=== PATIENT | male | born 1940 | race Caucasian/White ===

== ENCOUNTER 2016-09-05 14:47 | Inpatient (IN) | payer OTHER, MEDICARE ==
[~2016-09-05] VITALS: Ht 172.7 cm; Wt 69.3 kg
[~2016-09-05 14:47] MED LIST: ASCO100016 PO; CHEL50TA PO; CO Q100C9 PO; COCO1000 PO; GABA300C5 PO; GINK120T2 PO; LOVA40TA PO; LUTE40CA2 PO; MELO-1 PO; MULTTAB67 PO; PYRI100T PO; ROPI0.5T PO; SAW450CA2 PO; TIMO0.5S30 EACH EYE; TURM500C3 PO; VITA2000 PO; VITA250T5 PO
[2016-09-06] MEDS ORDERED: CHLORHEXIDINE GLUCONATE 2 % 1 PACK (2 CLOTHS) TOPICAL PRN (10:45)
[2016-09-06] MEDS ORDERED: LACTATED RINGER'S 1000 ML IV PRN (10:45)
[2016-09-06] MEDS ORDERED: INSULIN HUMAN REGULAR 1,000 UNITS/10 ML VIAL SQ PRN (10:45)
[2016-09-06] MEDS ORDERED: SODIUM CHLORID 0.9% 500 ML IV PRN (10:45)
[2016-09-06] MEDS ORDERED: POVIDONE IODINE 5% (ANTISEPSIS KIT) 4 APPLICATIONS EACH NARE PRN (10:45)
[2016-09-06] MEDS ORDERED: METOPROLOL TARTRATE 25 MG TAB PO PRN (10:45)
[2016-09-06] MEDS ORDERED: VANCOMYCIN HCL 1000 MG ON-CALL/NS 250 ML IV SCH ×2 (10:45)
[2016-09-06] MEDS ORDERED: SODIUM CHLOR 0.9% 1000 ML INJ 1,000 ML IV SCH (11:00)
[2016-09-06] MEDS ORDERED: LACTATED RINGER'S 1000 ML INJ 2,000 ML IV ONE (12:00)
[2016-09-06] MEDS ORDERED: PROPOFOL 200 MG/20 ML AMP IV ONE (12:00)
[2016-09-06] MEDS ORDERED: SODIUM CHLORID 0.9% 500 ML INJ 500 ML IV ONE (12:00)
[2016-09-06] MEDS ORDERED: ePHEDrine/NS 25 MG/5 ML SYR IV ONE (12:00)
[2016-09-06] MEDS ORDERED: ACETAMINOPHEN 1000 MG/100 ML VIAL IV ONE (12:00)
[2016-09-06] MEDS ORDERED: BUPIVACAINE HCL PF 0.5% 30 ML VIAL ONE (12:30)
[2016-09-06] MEDS ORDERED: GELFOAM SIZE 100 ONE (12:31)
[2016-09-06] MEDS ORDERED: GENTAMICIN SULFATE 80 MG/2 ML VIAL ONE (12:31)
[2016-09-06] MEDS ORDERED: ceFAZolin 2 GM PREMIX 50 ML ONE (12:31)
[2016-09-06] MEDS ORDERED: THROMBIN (TOPICAL) 5,000 UNIT VIAL ONE (12:31)
[2016-09-06] MEDS ORDERED: fentaNYL CITRATE 250 MCG/5 ML AMP ONE (13:19)
[2016-09-06] MEDS ORDERED: ARTIFICIAL TEARS OPTH OINT 3.5 APPLIC/3.5 GM TUBO ONE (13:19)
[2016-09-06] MEDS ORDERED: MIDAZOLAM HCL 2 MG/2 ML VIAL ONE (13:19)
--- NOTE | 2016-09-06 16:46 | EKG ---
Date Performed: 09/06/2016 Time Performed: 09:57:55 PTAGE: 76 years EKG: Sinus rhythm MARKED LEFT AXIS DEVIATION ABNORMAL ECG NO PREVIOUS TRACING DOCTOR: Dariel York Interpretating Date/Time 09/06/2016 16:44:31
[2016-09-06] MEDS ORDERED: NALOXONE HCL 0.4 MG/ML AMP IV PRN (17:30)
[2016-09-06] MEDS ORDERED: MORPHINE SULFATE 4 MG/ML INJ IV PUSH PRN (17:30)
[2016-09-06] MEDS ORDERED: HYDROmorphone HCL PCA 6 MG/30 ML IV SCH (17:30)
[2016-09-06] MEDS ORDERED: ACETAMINOPHEN 325 MG TAB PO PRN (17:30)
[2016-09-06] MEDS ORDERED: SODIUM CHLORIDE 0.9% FLUSH 5 ML FLUSH IVF PRN (17:30)
[2016-09-06] MEDS ORDERED: diphenhydrAMINE HCL 50 MG/ML VIAL IV PRN (17:30)
--- NOTE | 2016-09-06 17:39 | PD.OP ---
Operative Report Date of Surgery: Sep 06, 2016 Preoperative Diagnosis: L4-5 spondylolisthesis Postoperative Diagnosis: L4-5 spondylolisthesis Procedure: L4-L5 laminectomy, interbody arthrodhesis using PEEK cage and autologous bone graft, L4-L5 instrumental fixation using transpedicular screws and rods, L4-L5 posterolateral fusion using autologous bone graft and demineralized bone matrix. Microsurgical dissection Anesthesia: general Surgeon: Salvador Tubbs Multi Disciplined Language Analyst(s): Jael Sims Operation and Findings: INDICATIONS FOR THE SURGICAL PROCEDURE Mr Murrell is a 76 year-old male who presented with intractable mechanical back pain and fazal evidence of lower extremity radiculopathy. He has severe spondylosis and spondylolisthesis at L4-5. He failed maximum nonsurgical management including multiple modalities of conservative treatment as well as pain management interventions by an interventional pain specialist. A surgical decompression and arthrodhesis were indicated as a last resort. The [id number] details of the procedure, indications, alternatives, risks and potential complications were fully discussed with the patient. The patient fully understood. All the questions were answered. No guarantees were given. The patient voiced requesting the procedure and provided informed consents. The patient was offered the alternative of delaying the procedure and continuing with nonsurgical management. DETAILS OF THE SURGICAL PROCEDURE Prior to the procedure, the surgical incision was marked in the preoperative surgical holding room, and the procedure, risks, and potential complications revisited with the patient. Placement of electrodes for intraoperative neurophysiological monitoring was completed. The patient was taken to the operative room, and following induction of general anesthesia, endotracheal intubation was performed. A Hernandez catheter, bilateral ANTHONY hose and sequential compression devices were placed and kept throughout the procedure. The patient was positioned prone, over a Willie table over a bolsters. All pressure in the preoperative surgical holding room points were carefully padded with eggcrate and gel mattress. The eyes were tapped shut after ointment was applied by the anesthesiologist to prevent corneal abrasion. A Mariusz hugger was placed over the expossed lower body to maintain control of the core body temperature. The electrophysiological team placed the needles and electrodes in their proper location and baseline SSEP's and EMG potentials were registered. The entrance to each pedicles was marked using a C arm. The lumbar region was prepped and draped in the usual sterile fashion. The surgical procedure was performed in several steps as follow: SURGICAL APPROACH Once the patient was positioned, a localizing cross-table lateral x-ray was performed with a C-arm. Two paramedian small incisions were outlined on the skin approximately 3cm from the midline. The skin incisions were made with a # 10 blade. Small bleeders were controlled with the cautery. The dissection was then carried out into deper planes and through the thoracolumbar fascia with a Bovie. The intermuscular septum was identified and the myscles were blunted dissected along the septum. The facets and transverse process of L4 and L5 were exposed and the proper anatomical landmarks were identidied. A microsurgical self-retaining retractor was placed on the incision, and a localizing lateralizing cross-table x-ray was performed with an instrument underneath a lamina of the lumbar spine. INSTRUMENTAL FIXATION At this point in the procedure, placement of bilateral transpedicular screws was necessary for stabilization of the spine. Initially, the entry point for the screw was selected anatomically at the junction of the facet, with the transverse process, and the pars interarticularis at L4 and L5. This was started with a Giamshetti needle followed by the use of a lloyd wire. A tap was used to create the threads for the screws. Finally bilateral transpedicular screws were carefully placed bilaterally at L4, and L5 under fluoroscopic visualization. An appropriate purchase was achieved with all screws. The position of each screw was assessed anatomically with an AP, lateral , oblique Xrays. An intraoperative scan view of the spine was then performed using the iso-centric c-arm. Each screw was then assessed electrophysiologically stimulating each screw with a nerve stimulator. SURGICAL DECOMPRESSION There was significant mass effect with compression of the neural structures. In order to relieve neural compression, it was necessary to perform a decompressive laminectomy, with decompression of the spinal canal and bilateral lateral recesses. Note that the scope of such decompression was significantly more extensive than the minimal exposure necessary to perform an interbody fusion, as there was extreme facet arthropathy with near complete collapse of the disk spaces and severe stenosis cause by the hyperthrophic joint facets. At this point of the procedure the operative microscope was draped in the usual sterile fashion and brought to the field. The rest of the surgical procedure was performed using microdissection technique with the exception of the closure. Under the operating microscope, a decompressive laminectomy was carried out at L4-L5 as follow: The laminae, base of the spinous processes and facets were carefully drilled exposing the ligamentum flavum. The facets were abnormal with severe spondylolisthesis and gross mechanical instability. A large disk protusion was compressing the neural structures and exiting nerve roots. A near complete facetectomy was necessary resulting in further mechanical instability. The ligamentum flavum appeared hypertrophic, resulting on mass effect on the dorsal surface of the neural structures. The superior free border of the ligamentum flavum was elevated with a ligament dissector and the ligamentum flavum was removed with a 3 and 4 mm Kerrison forceps. The ligament was very adherent to the dural sac and during the dissection, and extreme care was taken during the dissection. The exiting nerve roots were identified, and a wide foraminotomy was performed with a Kerrison in their trajectory towards the neural foramen. Epidural veins located laterally to the dural sac were coagulated with the bipolar cautery, and then incised using microscissors. Gentle medial retraction of the dural sac allowed me to expose the disc space for the discectomy. Upon completion of the discectomy, an excellent decompression of the neural structures was achieved. Increased motion was noted, consistent with mechanical instability. INTERBODY ARTHRODHESIS In order to correct the narrowing of the disk space and maintain distraction of the space, and to achieve a solid interbody fusion, it was necessary the insertion of an interbody device into the disk space. Otherwise, the disk space would collapse, compromising the result of the surgical procedure. At this point of the procedure, the annulus fibrosus of the disk was carefully coagulated with a bipolar cautery and incised using an 11 bladed knife. Then, a microdiscectomy was carried out in a standard fashion using a combination of straight and up-biting pituitary forceps. A reverse angle curette was applied underneath the posterior longitudinal ligament, and used to push the disk fragments into the disk space, so they can be safely removed with a pituitary forceps. Once the discectomy was completed, it was necessary to decorticate the endplates, in order to eliminate the cartilaginous endplate and to expose healthy bone appropriate to perform the interbody fusion. The endplates at L4- L5 were then thoroughly decorticated using increasing size bone talib and ring curets, eliminating the cartilaginous fragments from both, the superior and inferior endplates. A disk space distractor was applied to the pedicle screws and gentle distraction was applied. This maneuver was assisted by the use of a disk distractor. Increased motility was noted at the disk, which was consistent with instability due to facet arthropathy. Once a thorough preparation of the disk space was achieved, the disk space was irrigated with antibiotic solution, and the interbody fusion was performed by carefully impacting an expandable PEEK cage filled with autologous iliac crest bone graft. The cage was cartefully expanded. A solid position of the cage with good purchase was achieved. The position of the cage was assessed anatomically with a probe and radiologically with the C-arm. POSTEROLATERAL FUSION The posterolateral fusion is a critical component to the procedure, to prevent future fatigue and failure of the instrumental fixation. Initially, the transverse processes of the vertebral bodies, lateral surface of the facets and the lateral gutters of the spine were carefully cleaned, eliminating all soft tissue and muscle attachments. The area was then irrigated with a large amount of antibiotic solution. Subsequently, the transverse processes, lateral surface of the facets, and lateral gutters of the spine were thoroughly decorticated using the TPS drill with a 5mm cutting norma, exposing cancellous bone, in preparation for the posterolateral fusion. The incision was again irrigated with antibiotic solution. Then, the posterolateral fusion was then performed by carefully packing the lateral gutters of the spine at L4-L5 with autologous bone combined with demineralized bone matrix. I packed as much bone as possible. COMPLETION OF THE INSTRUMENTATION AND CLOSURE The rods were brought to the field, applied to all the screws, and the screw caps were sequentially applied. Compression was performed between the pedicle screws, and final tightening of the screws was completed using a torque wrench. A cross-link was used to connect the rods, in order to increase the stability of the construct. The cross link was secured using a torque wrench previously calibrated. The incision was again thoroughly irrigated with several liters of antibiotic solution, and hemostasis secured with the bipolar cautery. A Valsalva Maneuver performed by the anesthesiologist failed to show any evidence of cerebrospinal fluid leak or bleeding. A 7 mm Willie-Johnson drain was left in the epidural space and externalized through a separate stab incision. The incision was then closed in planes. 0 Vicryl was used in an interrupted fashion to close the thoracolumbar fascia and the superficial fascia. The subcutaneous tissue was then approximated using 3-0 Vicryl in an interrupted fashion. Special care was taken to avoid space. The skin was then closed with 4-0 Vicryl in a running, subcuticular fashion. Dermabond was applied to the skin. Each plane of closure was irrigated with antibiotic solution. At the end of the procedure the sponge, needle and instrument counts were all correct. Estimated blood loss was 250 cc. No blood transfusion was given. The entire procedure was performed using continuous electrophysiological monitoring of the somatosensorial evoked potentials and EMG. The patient received prophylactic antibiotics. The patient was then extubated and transferred to the recovery room in stable condition. Salvador Tubbs MD Sep 06, 2016 17:39
[2016-09-06] MEDS ORDERED: *morphine SULFATE 8 MG/ML PERIprocedure ONLY ONE ×2 (17:50→18:25)
--- NOTE | 2016-09-06 17:57 | RADRPT ---
EXAM DATE/TIME: 09/06/2016 14:28 [facility] COMPARISON: No previous studies available for comparison. INDICATIONS : L4-L5 laminectomy and fusion with screws and rods MEDICAL HISTORY : None. SURGICAL HISTORY : None. ENCOUNTER: Initial ACUITY: 1 day PAIN SCORE: Non-responsive. LOCATION: Lumbar spine L4-L5 FINDINGS: Surgical screws traverse the bodies of L4 and L5 with posterior stabilization hardware in place with anterior fusion at this level. CONCLUSION: Intact intermediate postsurgical changes. Ronald Andrew MD on September 06, 2016 at 17:55 Board Certified Radiologist. This report was verified electronically.
[2016-09-06] MEDS ORDERED: NS + KCL 20 MEQ INJ 1,000 ML IV SCH (18:00)
[2016-09-06] MEDS ORDERED: DO NOT ADM ANY ANTICOAGULANT DRUGS PRN (19:30)
[2016-09-06 20:45] VITALS: BP 149/82; PULSE 65; RESP 18; TEMP 96.8; O2SAT 99
[2016-09-06] MEDS: ceFAZolin 2 GM PREMIX 50 ML IV SCH (22:28)
[2016-09-06] MEDS: GABAPENTIN 300 MG CAP PO SCH (22:28)
[2016-09-06] MEDS: TIMOLOL MALEATE 0.5% OPHT SOLN 5 ML BTL EACH EYE SCH (22:51)
[2016-09-06] MEDS: SODIUM CHLORIDE 0.9% FLUSH 5 ML FLUSH IVF SCH (22:51)
[2016-09-06] MEDS ORDERED: PILL SPLITTER OTHER PRN (23:00)
[2016-09-07] VITALS (7 sets, daily range): BP systolic 138–154; BP diastolic 71–84; PULSE 68–81; RESP 17–18; TEMP 95.4–97.8; O2SAT 96–100
--- NOTE | 2016-09-07 04:23 | PD.CONS ---
HPI Service [facility] Consult Requested By Dr. Tubbs . Reason for Consult medical management of hypertension . Primary Care Physician Essie Rangel M.D. Diagnoses: (1) Status post laminectomy (2) Dyspepsia (3) Hypertension History of Present Illness Written by Rafaela Bella, acting as scribe for Dr. Alexander on 09/07/16 at 04:15. 76 y/o male who underwent L4-L5 laminectomy for spondylolisthesis on 09/06/[address] Tubbs. The patient reports that he was having low back pain for years and his legs had started to give out prior to this laminectomy. He states that he was having gas-type discomfort with a sensation of reflux- "like food coming back up" and burping with breakfast foods only at home: oatmeal or yogurt. Symptoms present for one to two months. He reports these symptoms are currently occurring. He demonstrates frequent eructation following sipping a small amount of water. Denies nausea, vomiting, fever, coughing, shortness of breath, chest pain, dysuria, hematuria, diarrhea, red or black stool. . Review of Systems Except as stated in HPI: all other systems reviewed are Neg Past Family Social History Allergies: Coded Allergies: No Known Allergies (Unverified , 09/06/16) Past Medical History Glaucoma History of Hypertension Hyperlipidemia Degenerative disc disease Cervical spinal stenosis BPH Hydrocele Denies diabetes mellitus, CAD, atrial fibrillation, COPD, liver problems, kidney problems, DVT, PE, CVA, seizures, thyroid problems, or cancer. . Past Surgical History Appendectomy C2 -3, C3-4, C5-6 decompressive laminectomy 11/13/14 Sigmoidoscopy TURP Cystoscopy . Reported Medications Reported Meds & Active Scripts Active Reported Vitamin B-6 (Pyridoxine HCl) 100 Mg Tab 100 Mg PO DAILY Meloxicam 15 Mg Tab 15 Mg PO DAILY Zinc (Zinc Gluconate) 50 Mg Tab 1 Tab PO DAILY Ginkgo Biloba 120 Mg Tab 1 Tab PO DAILY Turmeric (Turmeric (Curcuma Longa)) 500 Mg Cap 1 Cap PO DAILY Timolol Opth Drops 0.5 % Soln 1 Drop EACH EYE BID Multiple Vitamin 1 Tab 1 Tab PO DAILY [place] ([place]) 450 Mg Cap Unknown Dose PO DAILY Lutein 40 Mg Cap 40 Mg PO DAILY Lovastatin 40 Mg Tab 40 Mg PO DAILY Gabapentin 300 Mg Cap 300 Mg PO BID Co Q 10 (Coenzyme Q10 (Ubidecarenone)) 100 Mg Cap 200 Mg PO DAILY Coconut Oil 1,000 Mg Cap 2 Cap PO DAILY Vitamin B-12 (Cyanocobalamin) 250 Mcg Tab 2,500 Mcg PO DAILY Vitamin D3 (Cholecalciferol) 2,000 Unit Cap 4,000 Units PO DAILY Ropinirole 0.5 Mg Tab 0.5 Mg PO HS Vitamin C (Ascorbic Acid) 1,000 Mg Tablet.er 1 Tab PO DAILY . Active Ordered Medications Current Medications Lactated Ringer's 1,000 ml @ 30 mls/hr Q24H PRN IV SEE LABEL COMMENTS; Start at 10:45; Stop 09/06/16 at 22:19; Status DC Sodium Chloride (NS 500 ml Inj) 500 ml @ 30 mls/hr [id number] PRN IV SEE LABEL COMMENTS; Start 09/06/16 at 10:45; Stop 09/06/16 at 22:19; Status DC Metoprolol Tartrate (Lopressor) 25 mg PRIMARY HEALTH CARE NURSE PRN PO SEE LABEL COMMENTS; Start 09/06/16 at 10:45; Stop 09/06/16 at 22:19; Status DC Povidone Iodine (Betadine 5% Antisepsis Kit) 1 applic PRIMARY HEALTH CARE NURSE PRN EACH NARE SEE LABEL COMMENTS Last administered on 09/06/16 10:52; Start 09/06/16 at 10:45 ; Stop 09/06/16 at 22:19; Status DC Chlorhexidine Gluconate (Chlorhexidine 2% Cloth) 3 pack PRIMARY HEALTH CARE NURSE PRN TOPICAL SEE LABEL COMMENTS; Start 09/06/16 at 10:45; Stop 09/06/16 at 22:19; Status DC Insulin Human Regular See Protocol Table ... PRIMARY HEALTH CARE NURSE PRN SQ SEE PROTOCOL TABLE ; Start 09/06/16 at 10:45; Stop 09/06/16 at 22:19; Status DC Vancomycin HCl 1000 mg/Sodium Chloride 250 ml @ 250 mls/hr PRIMARY HEALTH CARE NURSE IV Last administered on 09/06/16 11:47; Start 09/06/16 at 10:45; Stop 09/09/16 at 10:44 Sodium Chloride (NS 1000 ml Inj) 1,000 ml @ 30 mls/hr Q24H IV ; Start 09/06/16 at 11:00; Stop 09/06/16 at 19:29; Status DC Bupivacaine HCl (Marcaine Pf 0.5% Inj) 30 ml STK-MED ONCE .ROUTE Last administered on 09/06/16 14:57; Start 09/06/16 at 12:30; Stop 09/06/16 at 12:31 ; Status DC Thrombin 30898 units 10,000 units STK-MED ONCE .ROUTE Last administered on 09/06 14:57; Start 09/06/16 at 12:31; Stop 09/06/16 at 12:32; Status DC Cefazolin Sodium/ Dextrose (Ancef 2 Gm Premix) 50 ml @ As Directed STK-MED ONCE .ROUTE Last administered on 09/06/16 14:17; Start 09/06/16 at 12:31; Stop 02/11 at 12:32; Status DC Gelatin (Gelfoam 100 Top) 1 foam STK-MED ONCE .ROUTE Last administered on 14:57; Start 09/06/16 at 12:31; Stop 09/06/16 at 12:32; Status DC Gentamicin Sulfate (Gentamicin Inj) 240 mg STK-MED ONCE .ROUTE Last administered on 09/06/16 14:57; Start 09/06/16 at 12:31; Stop 09/06/16 at 12:32 ; Status DC Midazolam HCl (Versed Inj) 2 mg STK-MED ONCE .ROUTE ; Start 09/06/16 at 13:19; Stop 09/06/16 at 13:20; Status DC Fentanyl Citrate (fentaNYL INJ) 500 mcg STK-MED ONCE .ROUTE ; Start 09/06/16 at 13:19; Stop 09/06/16 at 13:20; Status DC Artificial Tears 3.5 applic 3.5 applic STK-MED ONCE .ROUTE ; Start 09/06/16 at 13:19; Stop 09/06/16 at 13:20; Status DC Potassium Chloride/Sodium Chloride (NS + KCl 20 Meq Inj) 1,000 ml @ 100 mls/hr Q10H IV Last administered on 09/06/16 18:00; Start 09/06/16 at 18:00 IV Flush (NS Flush) 2 ml UNSCH PRN IVF FLUSH AFTER USING IV ACCESS; Start 09/06 at 17:30 IV Flush 2 ml 2 ml BID IVF Last administered on 09/06/16 22:51; Start at 21:00 Cefazolin Sodium/ Dextrose (Ancef 2 Gm Premix) 50 ml @ 100 mls/hr Q8H IV Last administered on 09/06/16 22:28; Start 09/06/16 at 22:00; Stop 09/07/16 at 14:29 Pantoprazole Sodium (Protonix Inj) 40 mg DAILY IVP ; Start 09/07/16 at 09:00 Morphine Sulfate (Morphine Inj) 2 mg Q2H PRN IV PUSH PAIN SCALE 1 TO 6; Start 09/06/16 at 17:30 Morphine Sulfate (Morphine Inj) 4 mg Q2H PRN IV PUSH PAIN SCALE 7 TO 10; Start 09/06/16 at 17:30 Acetaminophen (Tylenol) 650 mg Q4H PRN PO TEMPERATURE > 101.5 F; Start at 17:30 Naloxone HCl (Narcan Inj) 0.4 mg UNSCH PRN IV RESPIRATORY RATE LESS THAN 10; Start 09/06/16 at 17:30 Diphenhydramine HCl (Benadryl Inj) 25 mg Q6H PRN IV ITCHING; Start 09/06/16 at 17:30 Hydromorphone HCl (Dilaudid WORKERS' COMPENSATION CLAIMS EXAMINER Inj) 6 mg UNSCH IV Last administered on 19:04; Start 09/06/16 at 17:30 WORKERS' COMPENSATION CLAIMS EXAMINER Dosage Infused (Pha) 1 Q8HR .XX ; Start 09/06/16 at 22:00 Cholecalciferol (Vitamin D3) 4,000 units DAILY PO ; Start 09/07/16 at 09:00 Cyanocobalamin (Vitamin B12) 2,500 mcg DAILY PO ; Start 09/07/16 at 09:00 Gabapentin (Neurontin) 300 mg BID PO Last administered on 09/06/16 22:28; Start 09/06/16 at 21:00 Pravastatin Sodium (Pravachol) 40 mg DAILY PO ; Start 09/07/16 at 09:00 Pyridoxine HCl (Vitamin B6) 100 mg DAILY PO ; Start 09/07/16 at 09:00 Ropinirole HCl (Requip) 0.5 mg HS PO Last administered on 09/06/16 22:50; Start 09/06/16 at 21:00 Timolol Maleate (Timoptic 0.5% Opt Soln) 1 drop BID EACH EYE Last administered on 09/06/16 22:51; Start 09/06/16 at 21:00 Ascorbic Acid (Vitamin C) 500 mg DAILY PO ; Start 09/07/16 at 09:00 Non-Formulary Medication 2 cap DAILY PO ; Start 09/07/16 at 09:00; Status UNV Non-Formulary Medication 200 mg DAILY PO ; Start 09/07/16 at 09:00; Status UNV Non-Formulary Medication 1 tab DAILY PO ; Start 09/07/16 at 09:00; Status UNV Non-Formulary Medication 40 mg DAILY PO NS; Start 09/07/16 at 09:00; Status UNV Multivitamins (Theragran) 1 tab DAILY PO ; Start 09/07/16 at 09:00 Non-Formulary Medication 1 cap DAILY PO ; Start 09/07/16 at 09:00; Status UNV Non-Formulary Medication 1 tab DAILY PO ; Start 09/07/16 at 09:00; Status UNV Morphine Sulfate (*morphine INJ PERIprocedure ONLY) 8 mg STK-MED ONCE .ROUTE Last administered on 09/06/16 17:50; Start 09/06/16 at 17:50; Stop 09/06/16 at 17:51; Status DC Morphine Sulfate (*morphine INJ PERIprocedure ONLY) 8 mg STK-MED ONCE .ROUTE Last administered on 09/06/16 18:25; Start 09/06/16 at 18:25; Stop 09/06/16 at 18:26; Status DC Miscellaneous Information ALL NURSING DEPARTME... UNSCH PRN .XX SEE LABEL COMMENTS; Start 09/06/16 at 19:30; Stop 09/07/16 at 19:29 Miscellaneous (Pill Splitter) 1 ea UNSCH PRN OTHER SEE LABEL COMMENTS; Start at 23:00 . Family History Mother with Alzheimers Dementia Father with age 82 y/o - not sure of what his diagnosis was . Social History Tobacco: never Physical Exam Vital Signs Vital Signs Date Time Temp Pulse Resp B/P Pulse Ox O2 Delivery O2 Flow Rate FiO2 09/07/16 00:00 97.0 68 18 139/80 100 09/06/16 20:45 96.8 65 18 149/82 99 09/06/16 19:04 14 09/06/16 19:00 61 15 162/85 100 Nasal Cannula 2 09/06/16 18:30 60 15 155/93 100 Nasal Cannula 2 09/06/16 18:15 60 14 150/87 100 Nasal Cannula 2 09/06/16 18:00 60 18 136/81 100 Nasal Cannula 2 09/06/16 17:45 59 18 145/89 100 Nasal Cannula 2 09/06/16 17:41 97.0 62 19 151/90 100 Nasal Cannula 2 Physical Exam GENERAL: This is a well-nourished, well-developed patient, in no apparent distress though frequently eructating. SKIN: No rashes, ecchymoses or lesions. Cool and dry. HEAD: Atraumatic. Normocephalic. EYES: No scleral icterus. No injection or drainage. ENT: Nose without bleeding, purulent drainage. NECK: Trachea midline. No JVD. CARDIOVASCULAR: Regular rate and rhythm without murmurs, gallops, or rubs. RESPIRATORY: Clear to auscultation. Breath sounds equal bilaterally. No wheezes , rales, or rhonchi. GASTROINTESTINAL: Abdomen soft, non-tender, nondistended. No guarding. MUSCULOSKELETAL: Extremities without clubbing, cyanosis, or edema. No calf tenderness. NEUROLOGICAL: Awake and alert. Motor and sensory grossly within normal limits. Normal speech. . Laboratory Laboratory Tests Test 09/06/16 10:45 Blood Type A POSITIVE Antibody Screen NEGATIVE Blood Bank Comment Imaging Last Impressions Lumbar Spine X-Ray 09/06/16 0000 Signed Impressions: Service Date/Time: Tuesday, September 06, 2016 14:28 - CONCLUSION: Intact intermediate postsurgical changes. Ronald Andrew MD . Assessment and Plan Problem List: (1) Hypertension ICD Code: I10 Status: Acute (2) Dyspepsia ICD Code: R10.13 Status: Acute (3) Status post laminectomy ICD Code: Z98.89 Status: Acute Assessment and Plan History of Hypertension - BP initially elevated post-operatively 155/93, likely secondary to post-op pain - Currently BP controlled at 139/80 - Consider adding Vasotec 1.25 mg IV q6h PRN SBP > 160 or DBP > 95 if needed - Monitor trends in BP and adjust treatment accordingly Dyspepsia - Reflux vs Esophageal stricture - Protonix 40 mg IV q24h - the patient may benefit from GI follow up as an outpatient DVT prophylaxis - per neurosurgery from the medical standpoint, the patient is cleared for discharge when okay with neurosurgery and should follow up with his PCP as an outpatient. Discussed Condition With patient, Rafaela Bella Sep 07, 2016 04:23
[2016-09-07] MEDS: ceFAZolin 2 GM PREMIX 50 ML IV SCH ×2 (04:24→14:38)
[2016-09-07] MEDS: TIMOLOL MALEATE 0.5% OPHT SOLN 5 ML BTL EACH EYE SCH ×2 (08:31→23:49)
[2016-09-07] MEDS: SODIUM CHLORIDE 0.9% FLUSH 5 ML FLUSH IVF SCH (08:33)
[2016-09-07] MEDS: PYRIDOXINE HCL 50 MG TAB PO SCH (08:34)
[2016-09-07] MEDS: PRAVASTATIN SOD 40 MG TAB PO SCH (08:34)
[2016-09-07] MEDS: CHOLECALCIFEROL (VIT D3) 1000 UNIT TAB PO SCH (08:34)
[2016-09-07] MEDS: CYANOCOBALAMIN 1,000 MCG TAB PO SCH (08:35)
[2016-09-07] MEDS: MULTIVITAMIN TAB PO SCH (08:35)
[2016-09-07] MEDS: ASCORBIC ACID 500 MG TAB PO SCH (08:35)
[2016-09-07] MEDS: PCA - TOTAL MG DILAUDID DELIVERED PER SHIFT SCH ×4 (08:36→22:00)
[2016-09-07] MEDS: GABAPENTIN 300 MG CAP PO SCH ×2 (08:36→23:48)
[2016-09-07] MEDS: PANTOPRAZOLE SODIUM 40 MG VIAL IVP SCH (08:37)
[2016-09-07] MEDS ORDERED: NON-FORMULARY DRUG (Coenzyme Q10 (Ubidecarenone) (Co Q 10) 200 MG) PO SCH (09:00)
[2016-09-07] MEDS ORDERED: GINKGO BILOBA PO SCH (09:00)
[2016-09-07] MEDS ORDERED: NON-FORMULARY DRUG (Zinc Gluconate (Zinc) 1 TAB) PO SCH (09:00)
[2016-09-07] MEDS ORDERED: NON-FORMULARY DRUG (Turmeric (Curcuma Longa) (Turmeric) 1 CAP) PO SCH (09:00)
[2016-09-07] MEDS ORDERED: LUTEIN 40 MG PO SCH (09:00)
[2016-09-07] MEDS ORDERED: COCONUT OIL PO SCH (09:00)
[2016-09-07] MEDS ORDERED: PHENOL 1.4% SOLN 180 ML BTL OROPHARYNG PRN (09:30)
--- NOTE | 2016-09-07 10:41 | HHI.PR ---
Subjective Remarks resting comfortably with no distress. has mild back and neck pain. no other complaints. Objective Vitals Vital Signs Date Time Temp Pulse Resp B/P Pulse Ox O2 Delivery O2 Flow Rate FiO2 09/07/16 08:37 19 09/07/16 08:16 96.3 78 18 149/74 100 09/07/16 04:00 95.4 72 18 138/80 100 09/07/16 00:00 97.0 68 18 139/80 100 09/06/16 20:45 96.8 65 18 149/82 99 09/06/16 19:04 14 09/06/16 19:00 61 15 162/85 100 Nasal Cannula 2 09/06/16 18:30 60 15 155/93 100 Nasal Cannula 2 09/06/16 18:15 60 14 150/87 100 Nasal Cannula 2 09/06/16 18:00 60 18 136/81 100 Nasal Cannula 2 09/06/16 17:45 59 18 145/89 100 Nasal Cannula 2 09/06/16 17:41 97.0 62 19 151/90 100 Nasal Cannula 2 I/O 09/06/16 09/06/16 09/06/16 09/07/16 09/07/16 09/07/16 07:00 15:00 23:00 07:00 15:00 23:00 Intake Total 2450 ml Output Total 1630 ml 600 ml Balance 820 ml -600 ml Intake Oral 650 ml Other 1800 ml Output Urine Total 1500 ml 600 ml Drainage Total 30 ml Estimated Blood Loss 100 ml Imaging Last Impressions Lumbar Spine X-Ray 09/06/16 0000 Signed Impressions: Service Date/Time: Tuesday, September 06, 2016 14:28 - CONCLUSION: Intact intermediate postsurgical changes. Ronald Andrew MD Objective Remarks GENERAL: This is a well-nourished, well-developed patient, in no apparent distress. CARDIOVASCULAR: Regular rate and regular rhythm without murmurs, gallops, or rubs. RESPIRATORY: Clear to auscultation. Breath sounds equal bilaterally. No wheezes , rales, or rhonchi. GASTROINTESTINAL: Abdomen soft, non-tender, nondistended. Normal, active bowel sounds MUSCULOSKELETAL: Extremities without clubbing, cyanosis, or edema. NEURO: Alert & Oriented x4 to person, place, time, situation. Moves all ext x4 Medications and IVs Current Medications Lactated Ringer's 1,000 ml @ 30 mls/hr Q24H PRN IV SEE LABEL COMMENTS; Start at 10:45; Stop 09/06/16 at 22:19; Status DC Sodium Chloride (NS 500 ml Inj) 500 ml @ 30 mls/hr [id number] PRN IV SEE LABEL COMMENTS; Start 09/06/16 at 10:45; Stop 09/06/16 at 22:19; Status DC Metoprolol Tartrate (Lopressor) 25 mg ADDICTION TREATMENT COUNSELOR PRN PO SEE LABEL COMMENTS; Start 09/06/16 at 10:45; Stop 09/06/16 at 22:19; Status DC Povidone Iodine (Betadine 5% Antisepsis Kit) 1 applic ADDICTION TREATMENT COUNSELOR PRN EACH NARE SEE LABEL COMMENTS Last administered on 09/06/16 10:52; Start 09/06/16 at 10:45 ; Stop 09/06/16 at 22:19; Status DC Chlorhexidine Gluconate (Chlorhexidine 2% Cloth) 3 pack ADDICTION TREATMENT COUNSELOR PRN TOPICAL SEE LABEL COMMENTS; Start 09/06/16 at 10:45; Stop 09/06/16 at 22:19; Status DC Insulin Human Regular See Protocol Table ... ADDICTION TREATMENT COUNSELOR PRN SQ SEE PROTOCOL TABLE ; Start 09/06/16 at 10:45; Stop 09/06/16 at 22:19; Status DC Vancomycin HCl 1000 mg/Sodium Chloride 250 ml @ 250 mls/hr ADDICTION TREATMENT COUNSELOR IV Last administered on 09/06/16 11:47; Start 09/06/16 at 10:45; Stop 09/09/16 at 10:44 Sodium Chloride (NS 1000 ml Inj) 1,000 ml @ 30 mls/hr Q24H IV ; Start 09/06/16 at 11:00; Stop 09/06/16 at 19:29; Status DC Bupivacaine HCl (Marcaine Pf 0.5% Inj) 30 ml STK-MED ONCE .ROUTE Last administered on 09/06/16 14:57; Start 09/06/16 at 12:30; Stop 09/06/16 at 12:31 ; Status DC Thrombin 17960 units 10,000 units STK-MED ONCE .ROUTE Last administered on 09/06 14:57; Start 09/06/16 at 12:31; Stop 09/06/16 at 12:32; Status DC Cefazolin Sodium/ Dextrose (Ancef 2 Gm Premix) 50 ml @ As Directed STK-MED ONCE .ROUTE Last administered on 09/06/16 14:17; Start 09/06/16 at 12:31; Stop 02/11 at 12:32; Status DC Gelatin (Gelfoam 100 Top) 1 foam STK-MED ONCE .ROUTE Last administered on 14:57; Start 09/06/16 at 12:31; Stop 09/06/16 at 12:32; Status DC Gentamicin Sulfate (Gentamicin Inj) 240 mg STK-MED ONCE .ROUTE Last administered on 09/06/16 14:57; Start 09/06/16 at 12:31; Stop 09/06/16 at 12:32 ; Status DC Midazolam HCl (Versed Inj) 2 mg STK-MED ONCE .ROUTE ; Start 09/06/16 at 13:19; Stop 09/06/16 at 13:20; Status DC Fentanyl Citrate (fentaNYL INJ) 500 mcg STK-MED ONCE .ROUTE ; Start 09/06/16 at 13:19; Stop 09/06/16 at 13:20; Status DC Artificial Tears 3.5 applic 3.5 applic STK-MED ONCE .ROUTE ; Start 09/06/16 at 13:19; Stop 09/06/16 at 13:20; Status DC Potassium Chloride/Sodium Chloride (NS + KCl 20 Meq Inj) 1,000 ml @ 100 mls/hr Q10H IV Last administered on 09/06/16 18:00; Start 09/06/16 at 18:00; Stop at 04:25; Status DC IV Flush (NS Flush) 2 ml UNSCH PRN IVF FLUSH AFTER USING IV ACCESS; Start 09/06 at 17:30 IV Flush 2 ml 2 ml BID IVF Last administered on 09/07/16 08:33; Start at 21:00 Cefazolin Sodium/ Dextrose (Ancef 2 Gm Premix) 50 ml @ 100 mls/hr Q8H IV Last administered on 09/07/16 04:24; Start 09/06/16 at 22:00; Stop 09/07/16 at 14:29 Pantoprazole Sodium (Protonix Inj) 40 mg DAILY IVP Last administered on 08:37; Start 09/07/16 at 09:00 Morphine Sulfate (Morphine Inj) 2 mg Q2H PRN IV PUSH PAIN SCALE 1 TO 6; Start 09/06/16 at 17:30 Morphine Sulfate (Morphine Inj) 4 mg Q2H PRN IV PUSH PAIN SCALE 7 TO 10; Start 09/06/16 at 17:30 Acetaminophen (Tylenol) 650 mg Q4H PRN PO TEMPERATURE > 101.5 F; Start at 17:30 Naloxone HCl (Narcan Inj) 0.4 mg UNSCH PRN IV RESPIRATORY RATE LESS THAN 10; Start 09/06/16 at 17:30 Diphenhydramine HCl (Benadryl Inj) 25 mg Q6H PRN IV ITCHING; Start 09/06/16 at 17:30 Hydromorphone HCl (Dilaudid CLAY PRODUCTS GLAZER Inj) 6 mg UNSCH IV Last administered on 19:04; Start 09/06/16 at 17:30 CLAY PRODUCTS GLAZER Dosage Infused (Pha) 1 Q8HR .XX Last administered on 09/07/16 08:37; Start 09/06/16 at 22:00 Cholecalciferol (Vitamin D3) 4,000 units DAILY PO Last administered on 08:34; Start 09/07/16 at 09:00 Cyanocobalamin (Vitamin B12) 2,500 mcg DAILY PO Last administered on 09/07/16 08:35; Start 09/07/16 at 09:00 Gabapentin (Neurontin) 300 mg BID PO Last administered on 09/06/16 22:28; Start 09/06/16 at 21:00 Pravastatin Sodium (Pravachol) 40 mg DAILY PO Last administered on 09/07/16 08 :34; Start 09/07/16 at 09:00 Pyridoxine HCl (Vitamin B6) 100 mg DAILY PO Last administered on 09/07/16 08: 34; Start 09/07/16 at 09:00 Ropinirole HCl (Requip) 0.5 mg HS PO Last administered on 09/06/16 22:50; Start 09/06/16 at 21:00 Timolol Maleate (Timoptic 0.5% Opt Soln) 1 drop BID EACH EYE Last administered on 09/07/16 08:31; Start 09/06/16 at 21:00 Ascorbic Acid (Vitamin C) 500 mg DAILY PO Last administered on 09/07/16 08:35 ; Start 09/07/16 at 09:00 Non-Formulary Medication 2 cap DAILY PO ; Start 09/07/16 at 09:00; Status UNV Non-Formulary Medication 200 mg DAILY PO ; Start 09/07/16 at 09:00; Status UNV Non-Formulary Medication 1 tab DAILY PO ; Start 09/07/16 at 09:00; Status UNV Non-Formulary Medication 40 mg DAILY PO NS; Start 09/07/16 at 09:00; Status UNV Multivitamins (Theragran) 1 tab DAILY PO Last administered on 09/07/16 08:35; Start 09/07/16 at 09:00 Non-Formulary Medication 1 cap DAILY PO ; Start 09/07/16 at 09:00; Status UNV Non-Formulary Medication 1 tab DAILY PO ; Start 09/07/16 at 09:00; Status UNV Morphine Sulfate (*morphine INJ PERIprocedure ONLY) 8 mg STK-MED ONCE .ROUTE Last administered on 09/06/16 17:50; Start 09/06/16 at 17:50; Stop 09/06/16 at 17:51; Status DC Morphine Sulfate (*morphine INJ PERIprocedure ONLY) 8 mg STK-MED ONCE .ROUTE Last administered on 09/06/16 18:25; Start 09/06/16 at 18:25; Stop 09/06/16 at 18:26; Status DC Miscellaneous Information ALL NURSING DEPARTME... UNSCH PRN .XX SEE LABEL COMMENTS; Start 09/06/16 at 19:30; Stop 09/07/16 at 19:29 Miscellaneous (Pill Splitter) 1 ea UNSCH PRN OTHER SEE LABEL COMMENTS; Start at 23:00 Phenol (Chloraseptic [place]) 2 spray Q2H PRN OROPHARYNG sore throat; Start 09/07 at 09:30 Senna/Docusate Sodium (Melida-Colace) 1 tab BID PO ; Start 09/07/16 at 09:30 A/P Assessment and Plan History of Hypertension - Monitor trends in BP and adjust treatment accordingly Dyspepsia - Reflux vs Esophageal stricture - continue Protonix - the patient may benefit from GI follow up as an outpatient DVT prophylaxis - per neurosurgery Discharge Planning dc planning per neurosurgery. Teresa Lai MD Sep 07, 2016 10:41
[2016-09-07] MEDS: DOCUSATE SODIUM 50 MG/SENNA 8.6 MG TAB PO SCH ×2 (10:48→23:48)
[2016-09-07 12:21] LABS: AUTOMATED NEUTROPHIL # 10.6 TH/MM3 (1.8-7.7); BASOPHIL % 0.2 % (0.0-2.0); HEMATOCRIT 31.8 % (39.0-51.0); HEMO FLAGS DIFF FINAL; LYMPH % 5.2 % (9.0-44.0); LYMPHOCYTE # 0.6 TH/MM3 (1.0-4.8); MEAN CELL VOLUME 82.4 FL (80.0-100.0); MONO % 8.5 % (0.0-8.0); NEUT % 86.1 % (16.0-70.0); PLATELET COUNT 216 TH/MM3 (150-450); RED BLOOD COUNT 3.85 MIL/MM3 (4.50-5.90); RED CELL DISTRIBUTION WIDTH 13.3 % (11.6-17.2); WHITE BLOOD COUNT 12.3 TH/MM3 (4.0-11.0)
--- NOTE | 2016-09-07 13:26 | HHI.NSPN ---
(Vandana Saavedra) Note Status Status: Progress Note (Vandana Saavedra) Interval History Interval History Mr. Murrell is a 76 year old male who underwent a L4-L5 laminectomy, interbody arthrodesis using PEEK cage and autologous bone graft, L4-L5 instrumental fixation using transpedicular screws and rods, L4-L5 posterolateral fusion using autologous bone graft and demineralized bone matrix, microsurgical dissection on 09/07/16 for lumbar spondylosis. 09/07: POD 1, doing well, report no pain if laying still, pain with movement controlled on BAG REPAIRER. c/o of mild burning when swallowing (Vandana Saavedra) Labs, Micro, & Vital Signs Results Date Time Temp Pulse Resp B/P Pulse Ox O2 Delivery O2 Flow Rate FiO2 09/07/16 12:14 96.4 71 18 142/71 98 09/07/16 08:37 19 09/07/16 08:16 96.3 78 18 149/74 100 09/07/16 04:00 95.4 72 18 138/80 100 09/07/16 00:00 97.0 68 18 139/80 100 09/06/16 20:45 96.8 65 18 149/82 99 09/06/16 19:04 14 09/06/16 19:00 61 15 162/85 100 Nasal Cannula 2 09/06/16 18:30 60 15 155/93 100 Nasal Cannula 2 09/06/16 18:15 60 14 150/87 100 Nasal Cannula 2 09/06/16 18:00 60 18 136/81 100 Nasal Cannula 2 09/06/16 17:45 59 18 145/89 100 Nasal Cannula 2 09/06/16 17:41 97.0 62 19 151/90 100 Nasal Cannula 2 09/07/16 07:00 Intake Total 2450 ml Output Total 1630 ml Balance 820 ml Constitutional Vital Signs Date Time Temp Pulse Resp B/P Pulse Ox O2 Delivery O2 Flow Rate FiO2 09/07/16 12:14 96.4 71 18 142/71 98 09/07/16 08:37 19 09/07/16 08:16 96.3 78 18 149/74 100 09/07/16 04:00 95.4 72 18 138/80 100 09/07/16 00:00 97.0 68 18 139/80 100 09/06/16 20:45 96.8 65 18 149/82 99 09/06/16 19:04 14 09/06/16 19:00 61 15 162/85 100 Nasal Cannula 2 09/06/16 18:30 60 15 155/93 100 Nasal Cannula 2 09/06/16 18:15 60 14 150/87 100 Nasal Cannula 2 09/06/16 18:00 60 18 136/81 100 Nasal Cannula 2 09/06/16 17:45 59 18 145/89 100 Nasal Cannula 2 09/06/16 17:41 97.0 62 19 151/90 100 Nasal Cannula 2 09/07/16 07:00 Intake Total 2450 ml Output Total 1630 ml Balance 820 ml (Vandana Saavedra) Review of Systems/Exam Exam Mr. Murrell alert, awake and oriented to time, place and person. Speech is fluent. Cranial nerve examination: pupils to be equal, round and reactive to light. Extra-ocular movements are intact. Facial motor are normal and symmetrical. Neck is soft and supple Muscle strength is normal in all muscle groups of both upper and lower extremities. Sensory examination is intact to light touch in both the upper and lower extremities. There is a bilateral plantar flexion response. (Vandana Saavedra) Medications Current Medications Current Medications Medications (Trade) Dose Ordered Sig/[place] Route PRN Reason Start Time Stop Time Status Last Admin Dose Admin IV Flush (NS Flush) 2 ml UNSCH PRN IVF FLUSH AFTER USING IV ACCESS 09/06/16 17:30 IV Flush 2 ml 2 ml BID IVF 09/06/16 21:00 09/07/16 08:33 Cefazolin Sodium/ Dextrose (Ancef 2 Gm Premix) 50 ml @ 100 mls/hr Q8H IV 09/06/16 22:00 09/07/16 14:29 09/07/16 04:24 Pantoprazole Sodium (Protonix Inj) 40 mg DAILY IVP 09/07/16 09:00 09/07/16 08:37 Morphine Sulfate (Morphine Inj) 2 mg Q2H PRN IV PUSH PAIN SCALE 1 TO 6 09/06/16 17:30 Morphine Sulfate (Morphine Inj) 4 mg Q2H PRN IV PUSH PAIN SCALE 7 TO 10 09/06/16 17:30 Acetaminophen (Tylenol) 650 mg Q4H PRN PO TEMPERATURE > 101.5 F 09/06/16 17:30 Naloxone HCl (Narcan Inj) 0.4 mg UNSCH PRN IV RESPIRATORY RATE LESS THAN 10 09/06/16 17:30 Diphenhydramine HCl (Benadryl Inj) 25 mg Q6H PRN IV ITCHING 09/06/16 17:30 Hydromorphone HCl (Dilaudid BAG REPAIRER Inj) 6 mg UNSCH IV 09/06/16 17:30 09/06/16 19:04 BAG REPAIRER Dosage Infused (Pha) 1 Q8HR .XX 09/06/16 22:00 09/07/16 08:37 Cholecalciferol (Vitamin D3) 4,000 units DAILY PO 09/07/16 09:00 09/07/16 08:34 Cyanocobalamin (Vitamin B12) 2,500 mcg DAILY PO 09/07/16 09:00 09/07/16 08:35 Gabapentin (Neurontin) 300 mg BID PO 09/06/16 21:00 09/06/16 22:28 Pravastatin Sodium (Pravachol) 40 mg DAILY PO 09/07/16 09:00 09/07/16 08:34 Pyridoxine HCl (Vitamin B6) 100 mg DAILY PO 09/07/16 09:00 09/07/16 08:34 Ropinirole HCl (Requip) 0.5 mg HS PO 09/06/16 21:00 09/06/16 22:50 Timolol Maleate (Timoptic 0.5% Opt Soln) 1 drop BID EACH EYE 09/06/16 21:00 09/07/16 08:31 Ascorbic Acid (Vitamin C) 500 mg DAILY PO 09/07/16 09:00 09/07/16 08:35 Multivitamins (Theragran) 1 tab DAILY PO 09/07/16 09:00 09/07/16 08:35 Miscellaneous Information ALL NURSING DEPARTME... UNSCH PRN .XX SEE LABEL COMMENTS 09/06/16 19:30 09/07/16 19:29 Miscellaneous (Pill Splitter) 1 ea UNSCH PRN OTHER SEE LABEL COMMENTS 09/06/16 23:00 Phenol (Chloraseptic [place]) 2 spray Q2H PRN OROPHARYNG sore throat 09/07/16 09:30 Senna/Docusate Sodium (Melida-Colace) 1 tab BID PO 09/07/16 09:30 09/07/16 10:48 (Vandana Saavedra) Medical Decision Making MDM Remarks 76 y/o male s/p L4-5 PLIF 09/06/16, POD 1, doing well, clinically stable (Vandana Saavdera) Plan Plan Remarks cont BAG REPAIRER for pain control, IS every hour chloraseptic spray for sore throat PT, OOB, LSO when out of bed dc rivera catheter (Vandana Saavedra) Attending Statement The exam, history, and the medical decision-making described in the above note were completed with the assistance of the mid-level provider. I reviewed and agree with the findings presented. I attest that I had a [id number] encounter with the patient on the same day, and personally performed and documented my assessment and findings in the medical record. (Salvador Tubbs MD) Vandana Saavedra Sep 07, 2016 13:26 Salvador Tubbs MD Sep 11, 2016 12:28
[2016-09-07 13:44] LABS: POTASSIUM 4.4 MEQ/L (3.5-5.1)
[2016-09-07 13:45] LABS: BICARBONATE 25.9 MEQ/L (21.0-32.0)
[2016-09-07] MEDS: MORPHINE SULFATE 8 MG/ML INJ IV PUSH PRN ×2 (19:12→23:52)
[2016-09-08] VITALS (9 sets, daily range): BP systolic 108–172; BP diastolic 68–81; PULSE 75–82; RESP 17–20; TEMP 96.6–98.9; O2SAT 92–98
[2016-09-08] MEDS: MORPHINE SULFATE 8 MG/ML INJ IV PUSH PRN ×6 (04:58→21:28)
[2016-09-08] MEDS: SODIUM CHLORIDE 0.9% FLUSH 5 ML FLUSH IVF SCH ×3 (04:59→21:00)
[2016-09-08] MEDS: PCA - TOTAL MG DILAUDID DELIVERED PER SHIFT SCH ×2 (06:00→13:27)
[2016-09-08] MEDS: PANTOPRAZOLE SODIUM 40 MG VIAL IVP SCH (08:12)
[2016-09-08] MEDS: DOCUSATE SODIUM 50 MG/SENNA 8.6 MG TAB PO SCH ×2 (08:12→20:50)
[2016-09-08] MEDS: PYRIDOXINE HCL 50 MG TAB PO SCH (08:12)
[2016-09-08] MEDS: MULTIVITAMIN TAB PO SCH (08:12)
[2016-09-08] MEDS: CHOLECALCIFEROL (VIT D3) 1000 UNIT TAB PO SCH (08:12)
[2016-09-08] MEDS: GABAPENTIN 300 MG CAP PO SCH ×2 (08:12→20:49)
[2016-09-08] MEDS: ASCORBIC ACID 500 MG TAB PO SCH (08:12)
[2016-09-08] MEDS: CYANOCOBALAMIN 1,000 MCG TAB PO SCH (08:13)
[2016-09-08] MEDS: PRAVASTATIN SOD 40 MG TAB PO SCH (08:13)
[2016-09-08] MEDS: TIMOLOL MALEATE 0.5% OPHT SOLN 5 ML BTL EACH EYE SCH ×2 (08:16→21:28)
[2016-09-08] MEDS ORDERED: HYDR-3535 PO (09:12)
--- NOTE | 2016-09-08 12:25 | HHI.PR ---
Subjective Remarks in no acute distress. has mild back pain. had urinary retention; rivera cath in place. no BM yet. d/w the RN. Objective Vitals Vital Signs Date Time Temp Pulse Resp B/P Pulse Ox O2 Delivery O2 Flow Rate FiO2 09/08/16 09:30 92 09/08/16 08:11 96.6 75 19 147/79 94 09/08/16 06:00 18 09/08/16 04:00 98.2 75 17 108/70 94 09/08/16 00:33 98.6 77 17 172/81 96 09/07/16 22:00 18 09/07/16 21:01 97.8 80 17 149/72 96 09/07/16 16:14 97 21 09/07/16 15:59 97.6 81 18 154/84 97 09/07/16 14:00 16 I/O 09/07/16 09/07/16 09/07/16 09/08/16 09/08/16 09/08/16 06:59 14:59 22:59 06:59 14:59 22:59 Intake Total 120 ml 240 ml 240 ml Output Total 600 ml 50 ml Balance -480 ml 190 ml 240 ml Intake Oral 120 ml 240 ml 240 ml Output Urine Total 600 ml Drainage Total 50 ml Bladder Scan Volume Amount 1000 ml # Voids 2 2 Result Diagram: 09/07/16 0600 09/07/16 1126 Imaging Last Impressions Lumbar Spine X-Ray 09/06/16 0000 Signed Impressions: Service Date/Time: Tuesday, September 06, 2016 14:28 - CONCLUSION: Intact intermediate postsurgical changes. Ronald Andrew MD Objective Remarks GENERAL: This is a well-nourished, well-developed patient, in no apparent distress. CARDIOVASCULAR: Regular rate and regular rhythm without murmurs, gallops, or rubs. RESPIRATORY: Clear to auscultation. Breath sounds equal bilaterally. No wheezes , rales, or rhonchi. GASTROINTESTINAL: Abdomen soft, non-tender, nondistended. Normal, active bowel sounds MUSCULOSKELETAL: Extremities without clubbing, cyanosis, or edema. NEURO: Alert & Oriented x4 to person, place, time, situation. Moves all ext x4 Medications and IVs Current Medications Lactated Ringer's 1,000 ml @ 30 mls/hr Q24H PRN IV SEE LABEL COMMENTS; Start at 10:45; Stop 09/06/16 at 22:19; Status DC Sodium Chloride (NS 500 ml Inj) 500 ml @ 30 mls/hr [id number] PRN IV SEE LABEL COMMENTS; Start 09/06/16 at 10:45; Stop 09/06/16 at 22:19; Status DC Metoprolol Tartrate (Lopressor) 25 mg SURGICAL DEVICE SALES REPRESENTATIVE PRN PO SEE LABEL COMMENTS; Start 09/06/16 at 10:45; Stop 09/06/16 at 22:19; Status DC Povidone Iodine (Betadine 5% Antisepsis Kit) 1 applic SURGICAL DEVICE SALES REPRESENTATIVE PRN EACH NARE SEE LABEL COMMENTS Last administered on 09/06/16 10:52; Start 09/06/16 at 10:45 ; Stop 09/06/16 at 22:19; Status DC Chlorhexidine Gluconate (Chlorhexidine 2% Cloth) 3 pack SURGICAL DEVICE SALES REPRESENTATIVE PRN TOPICAL SEE LABEL COMMENTS; Start 09/06/16 at 10:45; Stop 09/06/16 at 22:19; Status DC Insulin Human Regular See Protocol Table ... SURGICAL DEVICE SALES REPRESENTATIVE PRN SQ SEE PROTOCOL TABLE ; Start 09/06/16 at 10:45; Stop 09/06/16 at 22:19; Status DC Vancomycin HCl 1000 mg/Sodium Chloride 250 ml @ 250 mls/hr SURGICAL DEVICE SALES REPRESENTATIVE IV Last administered on 09/06/16 11:47; Start 09/06/16 at 10:45; Stop 09/09/16 at 10:44 Sodium Chloride (NS 1000 ml Inj) 1,000 ml @ 30 mls/hr Q24H IV ; Start 09/06/16 at 11:00; Stop 09/06/16 at 19:29; Status DC Bupivacaine HCl (Marcaine Pf 0.5% Inj) 30 ml STK-MED ONCE .ROUTE Last administered on 09/06/16 14:57; Start 09/06/16 at 12:30; Stop 09/06/16 at 12:31 ; Status DC Thrombin 32346 units 10,000 units STK-MED ONCE .ROUTE Last administered on 09/06 14:57; Start 09/06/16 at 12:31; Stop 09/06/16 at 12:32; Status DC Cefazolin Sodium/ Dextrose (Ancef 2 Gm Premix) 50 ml @ As Directed STK-MED ONCE .ROUTE Last administered on 09/06/16 14:17; Start 09/06/16 at 12:31; Stop 02/11 at 12:32; Status DC Gelatin (Gelfoam 100 Top) 1 foam STK-MED ONCE .ROUTE Last administered on 14:57; Start 09/06/16 at 12:31; Stop 09/06/16 at 12:32; Status DC Gentamicin Sulfate (Gentamicin Inj) 240 mg STK-MED ONCE .ROUTE Last administered on 09/06/16 14:57; Start 09/06/16 at 12:31; Stop 09/06/16 at 12:32 ; Status DC Midazolam HCl (Versed Inj) 2 mg STK-MED ONCE .ROUTE ; Start 09/06/16 at 13:19; Stop 09/06/16 at 13:20; Status DC Fentanyl Citrate (fentaNYL INJ) 500 mcg STK-MED ONCE .ROUTE ; Start 09/06/16 at 13:19; Stop 09/06/16 at 13:20; Status DC Artificial Tears 3.5 applic 3.5 applic STK-MED ONCE .ROUTE ; Start 09/06/16 at 13:19; Stop 09/06/16 at 13:20; Status DC Potassium Chloride/Sodium Chloride (NS + KCl 20 Meq Inj) 1,000 ml @ 100 mls/hr Q10H IV Last administered on 09/06/16 18:00; Start 09/06/16 at 18:00; Stop at 04:25; Status DC IV Flush (NS Flush) 2 ml UNSCH PRN IVF FLUSH AFTER USING IV ACCESS; Start 09/06 at 17:30 IV Flush 2 ml 2 ml BID IVF Last administered on 09/08/16 08:13; Start at 21:00 Cefazolin Sodium/ Dextrose (Ancef 2 Gm Premix) 50 ml @ 100 mls/hr Q8H IV Last administered on 09/07/16 14:38; Start 09/06/16 at 22:00; Stop 09/07/16 at 14:29 ; Status DC Pantoprazole Sodium (Protonix Inj) 40 mg DAILY IVP Last administered on 08:12; Start 09/07/16 at 09:00 Morphine Sulfate (Morphine Inj) 2 mg Q2H PRN IV PUSH PAIN 1-6; Start 09/07/16 at 17:00 Morphine Sulfate (Morphine Inj) 4 mg Q2H PRN IV PUSH PAIN SCALE 7 TO 10; Start 09/06/16 at 17:30; Stop 09/07/16 at 16:56; Status DC Acetaminophen (Tylenol) 650 mg Q4H PRN PO TEMPERATURE > 101.5 F; Start at 17:30 Naloxone HCl (Narcan Inj) 0.4 mg UNSCH PRN IV RESPIRATORY RATE LESS THAN 10; Start 09/06/16 at 17:30 Diphenhydramine HCl (Benadryl Inj) 25 mg Q6H PRN IV ITCHING; Start 09/06/16 at 17:30 Hydromorphone HCl (Dilaudid CASINO MANAGER Inj) 6 mg UNSCH IV Last administered on 19:04; Start 09/06/16 at 17:30 CASINO MANAGER Dosage Infused (Pha) 1 Q8HR .XX Last administered on 09/08/16 06:00; Start 09/06/16 at 22:00 Cholecalciferol (Vitamin D3) 4,000 units DAILY PO Last administered on 08:12; Start 09/07/16 at 09:00 Cyanocobalamin (Vitamin B12) 2,500 mcg DAILY PO Last administered on 09/08/16 08:13; Start 09/07/16 at 09:00 Gabapentin (Neurontin) 300 mg BID PO Last administered on 09/08/16 08:12; Start 09/06/16 at 21:00 Pravastatin Sodium (Pravachol) 40 mg DAILY PO Last administered on 09/08/16 08 :13; Start 09/07/16 at 09:00 Pyridoxine HCl (Vitamin B6) 100 mg DAILY PO Last administered on 09/08/16 08: 12; Start 09/07/16 at 09:00 Ropinirole HCl (Requip) 0.5 mg HS PO Last administered on 09/07/16 23:48; Start 09/06/16 at 21:00 Timolol Maleate (Timoptic 0.5% Opt Soln) 1 drop BID EACH EYE Last administered on 09/08/16 08:16; Start 09/06/16 at 21:00 Ascorbic Acid (Vitamin C) 500 mg DAILY PO Last administered on 09/08/16 08:12 ; Start 09/07/16 at 09:00 Non-Formulary Medication 2 cap DAILY PO ; Start 09/07/16 at 09:00; Status UNV Non-Formulary Medication 200 mg DAILY PO ; Start 09/07/16 at 09:00; Status UNV Non-Formulary Medication 1 tab DAILY PO ; Start 09/07/16 at 09:00; Status UNV Non-Formulary Medication 40 mg DAILY PO NS; Start 09/07/16 at 09:00; Status UNV Multivitamins (Theragran) 1 tab DAILY PO Last administered on 09/08/16 08:12; Start 09/07/16 at 09:00 Non-Formulary Medication 1 cap DAILY PO ; Start 09/07/16 at 09:00; Status UNV Non-Formulary Medication 1 tab DAILY PO ; Start 09/07/16 at 09:00; Status UNV Morphine Sulfate (*morphine INJ PERIprocedure ONLY) 8 mg STK-MED ONCE .ROUTE Last administered on 09/06/16 17:50; Start 09/06/16 at 17:50; Stop 09/06/16 at 17:51; Status DC Morphine Sulfate (*morphine INJ PERIprocedure ONLY) 8 mg STK-MED ONCE .ROUTE Last administered on 09/06/16 18:25; Start 09/06/16 at 18:25; Stop 09/06/16 at 18:26; Status DC Miscellaneous Information ALL NURSING DEPARTME... UNSCH PRN .XX SEE LABEL COMMENTS; Start 09/06/16 at 19:30; Stop 09/07/16 at 19:29; Status DC Miscellaneous (Pill Splitter) 1 ea UNSCH PRN OTHER SEE LABEL COMMENTS; Start at 23:00 Phenol (Chloraseptic [place]) 2 spray Q2H PRN OROPHARYNG sore throat; Start 09/07 at 09:30 Senna/Docusate Sodium (Melida-Colace) 1 tab BID PO Last administered on 08:12; Start 09/07/16 at 09:30 Morphine Sulfate (Morphine Inj) 4 mg Q2H PRN IV PUSH PAIN 7-10 Last administered on 09/08/16t 11:17; Start 09/07/16 at 17:00 A/P Assessment and Plan A/P - s/p lumbar laminectomy continue with pain control and rehab efforts- management per neurosurgery. History of Hypertension - Monitor trends in BP for now- Dyspepsia - Reflux vs Esophageal stricture - continue Protonix - the patient may benefit from GI follow up as an outpatient urinary retention; rivera in place hyponatremia; repeat BMP today. constipation; laxatives as needed. DVT prophylaxis - per neurosurgery Teresa Lai MD Sep 08, 2016 12:25
[2016-09-08] MEDS ORDERED: MAGNESIUM HYDROXIDE SUSP 30 ML CUP PO PRN (12:30)
--- NOTE | 2016-09-08 15:03 | HHI.FF ---
Face to Face Verification Diagnosis: (1) S/P lumbar spinal fusion (2) Urine retention Physical Therapy Order: Improve ambulation Home Health Nursing Order: Medical education Signs/symptoms of disease process Medication education-adverse effect Wound care and dressing changes Nursing assessment with vital signs Hernandez catheter maintenance I have seen patient Rede MurrellJr on 09/08/16. My clinical findings support the need for the requested home health care services because: Ltd mobility - disease progression Deconditioned w/ increased weakness High risk of falls I certify that my clinical findings support that this patient is homebound because: Post-op weakness Unsteady gait/balance Vandana Saavedra Sep 08, 2016 15:03
--- NOTE | 2016-09-08 15:04 | HHI.DCPOC ---
Discharge Care Plan Diagnosis: (1) S/P lumbar spinal fusion (2) Urine retention Goals to Promote Your Health * To prevent worsening of your condition and complications * To maintain your health at the optimal level Directions to Meet Your Goals Take your medications as prescribed Follow your dietary instruction Follow activity as directed Keep your appointments as scheduled Take your immunizations and boosters as scheduled If your symptoms worsen call your PCP, if no PCP go to Urgent Care Center or Emergency Room Smoking is Dangerous to Your Health. Avoid second hand smoke Call the 24-hour hour crisis hotline for domestic abuse at Vandana Saavedra Sep 08, 2016 15:04
--- NOTE | 2016-09-08 15:08 | HHI.NSPN ---
(Vandana Saavedra) Note Status Status: Progress Note (Vandana Saavedra) Interval History Interval History Mr. Murrell is a 76 year old male who underwent a L4-L5 laminectomy, interbody arthrodesis using PEEK cage and autologous bone graft, L4-L5 instrumental fixation using transpedicular screws and rods, L4-L5 posterolateral fusion using autologous bone graft and demineralized bone matrix, microsurgical dissection on 09/07/16 for lumbar spondylosis. 09/07: POD 1, doing well, report no pain if laying still, pain with movement controlled on AREA SECRETARY. c/o of mild burning when swallowing 09/08: POD 2, c/o urine retention, dribbling, history of prostate problems and f/ u Dr. Coombs outpatient. reports surgical pain improving, still requiring IV pain medications. (Vandana Saavedra) Labs, Micro, & Vital Signs Results Date Time Temp Pulse Resp B/P Pulse Ox O2 Delivery O2 Flow Rate FiO2 09/08/16 13:27 18 09/08/16 12:55 97.6 76 19 133/68 96 09/08/16 09:30 92 09/08/16 08:11 96.6 75 19 147/79 94 09/08/16 06:00 18 09/08/16 04:00 98.2 75 17 108/70 94 09/08/16 00:33 98.6 77 17 172/81 96 09/07/16 22:00 18 09/07/16 21:01 97.8 80 17 149/72 96 09/07/16 16:14 97 21 09/07/16 15:59 97.6 81 18 154/84 97 09/08/16 06:59 Intake Total 600 ml Output Total 650 ml Balance -50 ml Constitutional Vital Signs Date Time Temp Pulse Resp B/P Pulse Ox O2 Delivery O2 Flow Rate FiO2 09/08/16 13:27 18 09/08/16 12:55 97.6 76 19 133/68 96 09/08/16 09:30 92 09/08/16 08:11 96.6 75 19 147/79 94 09/08/16 06:00 18 09/08/16 04:00 98.2 75 17 108/70 94 09/08/16 00:33 98.6 77 17 172/81 96 09/07/16 22:00 18 09/07/16 21:01 97.8 80 17 149/72 96 09/07/16 16:14 97 21 09/07/16 15:59 97.6 81 18 154/84 97 09/08/16 06:59 Intake Total 600 ml Output Total 650 ml Balance -50 ml (Vandana Saavedra) Review of Systems/Exam Exam Mr. Murrell alert and oriented to time, place and person. Speech is appropriate. Surgical wound is clean and dry. ROD drain with minimal drainage. Cranial nerve examination: pupils to be equal, round and reactive to light. Facial motor are normal and symmetrical. Neck is soft and supple Muscle strength is normal in all muscle groups of both upper and lower extremities. Sensory examination is intact to light touch in both the upper and lower extremities. There is a bilateral plantar flexion response. (Vandana Saavedra) Medications Current Medications Current Medications Medications (Trade) Dose Ordered Sig/[place] Route PRN Reason Start Time Stop Time Status Last Admin Dose Admin IV Flush (NS Flush) 2 ml UNSCH PRN IVF FLUSH AFTER USING IV ACCESS 09/06/16 17:30 IV Flush (NS Flush) 2 ml BID IVF 09/06/16 21:00 09/08/16 08:13 Pantoprazole Sodium (Protonix Inj) 40 mg DAILY IVP 09/07/16 09:00 09/08/16 08:12 Morphine Sulfate (Morphine Inj) 2 mg Q2H PRN IV PUSH PAIN 1-6 09/07/16 17:00 Acetaminophen (Tylenol) 650 mg Q4H PRN PO TEMPERATURE > 101.5 F 09/06/16 17:30 Naloxone HCl (Narcan Inj) 0.4 mg UNSCH PRN IV RESPIRATORY RATE LESS THAN 10 09/06/16 17:30 Diphenhydramine HCl (Benadryl Inj) 25 mg Q6H PRN IV ITCHING 09/06/16 17:30 Hydromorphone HCl (Dilaudid AREA SECRETARY Inj) 6 mg UNSCH IV 09/06/16 17:30 09/06/16 19:04 AREA SECRETARY Dosage Infused (Pha) 1 Q8HR .XX 09/06/16 22:00 09/08/16 06:00 Cholecalciferol (Vitamin D3) 4,000 units DAILY PO 09/07/16 09:00 09/08/16 08:12 Cyanocobalamin (Vitamin B12) 2,500 mcg DAILY PO 09/07/16 09:00 09/08/16 08:13 Gabapentin (Neurontin) 300 mg BID PO 09/06/16 21:00 09/08/16 08:12 Pravastatin Sodium (Pravachol) 40 mg DAILY PO 09/07/16 09:00 09/08/16 08:13 Pyridoxine HCl (Vitamin B6) 100 mg DAILY PO 09/07/16 09:00 09/08/16 08:12 Ropinirole HCl (Requip) 0.5 mg HS PO 09/06/16 21:00 09/07/16 23:48 Timolol Maleate (Timoptic 0.5% Opt Soln) 1 drop BID EACH EYE 09/06/16 21:00 09/08/16 08:16 Ascorbic Acid (Vitamin C) 500 mg DAILY PO 09/07/16 09:00 09/08/16 08:12 Multivitamins (Theragran) 1 tab DAILY PO 09/07/16 09:00 09/08/16 08:12 Miscellaneous (Pill Splitter) 1 ea UNSCH PRN OTHER SEE LABEL COMMENTS 09/06/16 23:00 Phenol (Chloraseptic [place]) 2 spray Q2H PRN OROPHARYNG sore throat 09/07/16 09:30 Senna/Docusate Sodium (Melida-Colace) 1 tab BID PO 09/07/16 09:30 09/08/16 08:12 Morphine Sulfate (Morphine Inj) 4 mg Q2H PRN IV PUSH PAIN 7-10 09/07/16 17:00 09/08/16 14:02 Magnesium Hydroxide (Milk Of Magnesia Liq) 30 ml DAILY PRN PO CONSTIPATION 09/08/16 12:30 09/08/16 14:13 (Vandana Saavedra) Medical Decision Making MDM Remarks 76 y/o male s/p L4-5 PLIF 09/06/16, POD 2, pain controlled, improving acute urinary retention (Vandana Saavedra) Plan Plan Remarks bladder scan shows extensive retention of urine, rivera catheter reinserted, cont therapy, LSO when our of bed dc ROD drain cont supportive care anticipate dc home with C PT tomorrow, recommend f/u with his Urologist Dr. Coombs outpatient for further management ( Vandana Saavedra) Attending Statement The exam, history, and the medical decision-making described in the above note were completed with the assistance of the mid-level provider. I reviewed and agree with the findings presented. I attest that I had a [id number] encounter with the patient on the same day, and personally performed and documented my assessment and findings in the medical record. (Salvador Tubbs MD) Vandana Saavedra Sep 08, 2016 15:08 Salvador Tubbs MD Sep 11, 2016 12:40
[2016-09-08 17:47] LABS: BICARBONATE 29.4 MEQ/L (21.0-32.0); POTASSIUM 4.2 MEQ/L (3.5-5.1)
[2016-09-09 01:38] VITALS: BP 118/70; PULSE 71; RESP 17; TEMP 97.5; O2SAT 96
[2016-09-09 04:48] VITALS: BP 122/69; PULSE 73; RESP 18; TEMP 98.1; O2SAT 97
[2016-09-09] MEDS: MORPHINE SULFATE 8 MG/ML INJ IV PUSH PRN ×3 (05:45→16:32)
[2016-09-09 08:15] VITALS: BP 135/86; PULSE 74; RESP 18; TEMP 96; O2SAT 96
[2016-09-09] MEDS: TIMOLOL MALEATE 0.5% OPHT SOLN 5 ML BTL EACH EYE SCH (08:31)
[2016-09-09] MEDS: SODIUM CHLORIDE 0.9% FLUSH 5 ML FLUSH IVF SCH (08:31)
[2016-09-09] MEDS: PRAVASTATIN SOD 40 MG TAB PO SCH (08:32)
[2016-09-09] MEDS: PYRIDOXINE HCL 50 MG TAB PO SCH (08:32)
[2016-09-09] MEDS: CHOLECALCIFEROL (VIT D3) 1000 UNIT TAB PO SCH (08:32)
[2016-09-09] MEDS: PANTOPRAZOLE SODIUM 40 MG VIAL IVP SCH (08:32)
[2016-09-09] MEDS: MULTIVITAMIN TAB PO SCH (08:32)
[2016-09-09] MEDS: ASCORBIC ACID 500 MG TAB PO SCH (08:32)
[2016-09-09] MEDS: DOCUSATE SODIUM 50 MG/SENNA 8.6 MG TAB PO SCH (08:32)
[2016-09-09] MEDS: GABAPENTIN 300 MG CAP PO SCH (08:32)
[2016-09-09 09:21] VITALS: O2SAT 98
[2016-09-09] MEDS: CYANOCOBALAMIN 1,000 MCG TAB PO SCH (10:19)
--- NOTE | 2016-09-09 12:07 | HHI.PR ---
Subjective Remarks in no acute distress. rivera is in place. pain is fairly controlled. family at the bedside. Objective Vitals Vital Signs Date Time Temp Pulse Resp B/P Pulse Ox O2 Delivery O2 Flow Rate FiO2 09/09/16 09:21 98 21 09/09/16 08:15 96.0 74 18 135/86 96 09/09/16 04:48 98.1 73 18 122/69 97 09/09/16 01:38 97.5 71 17 118/70 96 09/08/16 19:00 98.9 79 20 126/77 98 09/08/16 18:34 139/76 09/08/16 17:57 98 21 09/08/16 16:28 98.0 82 19 134/75 98 09/08/16 13:27 18 09/08/16 12:55 97.6 76 19 133/68 96 I/O 09/08/16 09/08/16 09/08/16 09/09/16 09/09/16 09/09/16 07:00 15:00 23:00 07:00 15:00 23:00 Intake Total 240 ml Output Total 1550 ml 10 ml 2230 ml 800 ml Balance 240 ml -1550 ml -10 ml -2230 ml -800 ml Intake Oral 240 ml Output Urine Total 1500 ml 2230 ml 800 ml Drainage Total 50 ml 10 ml Bladder Scan Volume Amount 1000 ml # Voids 2 3 Result Diagram: 09/07/16 0600 09/08/16 1704 Imaging Last Impressions Lumbar Spine X-Ray 09/06/16 0000 Signed Impressions: Service Date/Time: Tuesday, September 06, 2016 14:28 - CONCLUSION: Intact intermediate postsurgical changes. Ronald Andrew MD Objective Remarks GENERAL: This is a well-nourished, well-developed patient, in no apparent distress. CARDIOVASCULAR: Regular rate and regular rhythm without murmurs, gallops, or rubs. RESPIRATORY: Clear to auscultation. Breath sounds equal bilaterally. No wheezes , rales, or rhonchi. GASTROINTESTINAL: Abdomen soft, non-tender, nondistended. Normal, active bowel sounds MUSCULOSKELETAL: Extremities without clubbing, cyanosis, or edema. NEURO: Alert & Oriented x4 to person, place, time, situation. Moves all ext x4 Medications and IVs Current Medications Lactated Ringer's 1,000 ml @ 30 mls/hr Q24H PRN IV SEE LABEL COMMENTS; Start at 10:45; Stop 09/06/16 at 22:19; Status DC Sodium Chloride (NS 500 ml Inj) 500 ml @ 30 mls/hr [id number] PRN IV SEE LABEL COMMENTS; Start 09/06/16 at 10:45; Stop 09/06/16 at 22:19; Status DC Metoprolol Tartrate (Lopressor) 25 mg ADVANCED PRACTICE NURSE PSYCHOTHERAPIST PRN PO SEE LABEL COMMENTS; Start 09/06/16 at 10:45; Stop 09/06/16 at 22:19; Status DC Povidone Iodine (Betadine 5% Antisepsis Kit) 1 applic ADVANCED PRACTICE NURSE PSYCHOTHERAPIST PRN EACH NARE SEE LABEL COMMENTS Last administered on 09/06/16 10:52; Start 09/06/16 at 10:45 ; Stop 09/06/16 at 22:19; Status DC Chlorhexidine Gluconate (Chlorhexidine 2% Cloth) 3 pack ADVANCED PRACTICE NURSE PSYCHOTHERAPIST PRN TOPICAL SEE LABEL COMMENTS; Start 09/06/16 at 10:45; Stop 09/06/16 at 22:19; Status DC Insulin Human Regular See Protocol Table ... ADVANCED PRACTICE NURSE PSYCHOTHERAPIST PRN SQ SEE PROTOCOL TABLE ; Start 09/06/16 at 10:45; Stop 09/06/16 at 22:19; Status DC Vancomycin HCl 1000 mg/Sodium Chloride 250 ml @ 250 mls/hr ADVANCED PRACTICE NURSE PSYCHOTHERAPIST IV Last administered on 09/06/16 11:47; Start 09/06/16 at 10:45; Stop 09/09/16 at 10:44 ; Status DC Sodium Chloride (NS 1000 ml Inj) 1,000 ml @ 30 mls/hr Q24H IV ; Start 09/06/16 at 11:00; Stop 09/06/16 at 19:29; Status DC Bupivacaine HCl (Marcaine Pf 0.5% Inj) 30 ml STK-MED ONCE .ROUTE Last administered on 09/06/16 14:57; Start 09/06/16 at 12:30; Stop 09/06/16 at 12:31 ; Status DC Thrombin 52227 units 10,000 units STK-MED ONCE .ROUTE Last administered on 09/06 14:57; Start 09/06/16 at 12:31; Stop 09/06/16 at 12:32; Status DC Cefazolin Sodium/ Dextrose (Ancef 2 Gm Premix) 50 ml @ As Directed STK-MED ONCE .ROUTE Last administered on 09/06/16 14:17; Start 09/06/16 at 12:31; Stop 02/11 at 12:32; Status DC Gelatin (Gelfoam 100 Top) 1 foam STK-MED ONCE .ROUTE Last administered on 14:57; Start 09/06/16 at 12:31; Stop 09/06/16 at 12:32; Status DC Gentamicin Sulfate (Gentamicin Inj) 240 mg STK-MED ONCE .ROUTE Last administered on 09/06/16 14:57; Start 09/06/16 at 12:31; Stop 09/06/16 at 12:32 ; Status DC Midazolam HCl (Versed Inj) 2 mg STK-MED ONCE .ROUTE ; Start 09/06/16 at 13:19; Stop 09/06/16 at 13:20; Status DC Fentanyl Citrate (fentaNYL INJ) 500 mcg STK-MED ONCE .ROUTE ; Start 09/06/16 at 13:19; Stop 09/06/16 at 13:20; Status DC Artificial Tears 3.5 applic 3.5 applic STK-MED ONCE .ROUTE ; Start 09/06/16 at 13:19; Stop 09/06/16 at 13:20; Status DC Potassium Chloride/Sodium Chloride (NS + KCl 20 Meq Inj) 1,000 ml @ 100 mls/hr Q10H IV Last administered on 09/06/16 18:00; Start 09/06/16 at 18:00; Stop at 04:25; Status DC IV Flush (NS Flush) 2 ml UNSCH PRN IVF FLUSH AFTER USING IV ACCESS; Start 09/06 at 17:30 IV Flush 2 ml 2 ml BID IVF Last administered on 09/09/16 08:31; Start at 21:00 Cefazolin Sodium/ Dextrose (Ancef 2 Gm Premix) 50 ml @ 100 mls/hr Q8H IV Last administered on 09/07/16 14:38; Start 09/06/16 at 22:00; Stop 09/07/16 at 14:29 ; Status DC Pantoprazole Sodium (Protonix Inj) 40 mg DAILY IVP Last administered on 08:32; Start 09/07/16 at 09:00 Morphine Sulfate (Morphine Inj) 2 mg Q2H PRN IV PUSH PAIN 1-6 Last administered on 09/09/16 05:45; Start 09/07/16 at 17:00 Morphine Sulfate (Morphine Inj) 4 mg Q2H PRN IV PUSH PAIN SCALE 7 TO 10; Start 09/06/16 at 17:30; Stop 09/07/16 at 16:56; Status DC Acetaminophen (Tylenol) 650 mg Q4H PRN PO TEMPERATURE > 101.5 F; Start at 17:30 Naloxone HCl (Narcan Inj) 0.4 mg UNSCH PRN IV RESPIRATORY RATE LESS THAN 10; Start 09/06/16 at 17:30 Diphenhydramine HCl (Benadryl Inj) 25 mg Q6H PRN IV ITCHING; Start 09/06/16 at 17:30 Hydromorphone HCl (Dilaudid NAPPER GRINDER Inj) 6 mg UNSCH IV Last administered on 19:04; Start 09/06/16 at 17:30 NAPPER GRINDER Dosage Infused (Pha) 1 Q8HR .XX Last administered on 09/08/16 06:00; Start 09/06/16 at 22:00 Cholecalciferol (Vitamin D3) 4,000 units DAILY PO Last administered on 08:32; Start 09/07/16 at 09:00 Cyanocobalamin (Vitamin B12) 2,500 mcg DAILY PO Last administered on 09/09/16 10:19; Start 09/07/16 at 09:00 Gabapentin (Neurontin) 300 mg BID PO Last administered on 09/09/16 08:32; Start 09/06/16 at 21:00 Pravastatin Sodium (Pravachol) 40 mg DAILY PO Last administered on 09/09/16 08 :32; Start 09/07/16 at 09:00 Pyridoxine HCl (Vitamin B6) 100 mg DAILY PO Last administered on 09/09/16 08: 32; Start 09/07/16 at 09:00 Ropinirole HCl (Requip) 0.5 mg HS PO Last administered on 09/08/16 20:50; Start 09/06/16 at 21:00 Timolol Maleate (Timoptic 0.5% Opth Soln) 1 drop BID EACH EYE Last administered on 09/09/16 08:31; Start 09/06/16 at 21:00 Ascorbic Acid (Vitamin C) 500 mg DAILY PO Last administered on 09/09/16 08:32 ; Start 09/07/16 at 09:00 Non-Formulary Medication 2 cap DAILY PO ; Start 09/07/16 at 09:00; Status UNV Non-Formulary Medication 200 mg DAILY PO ; Start 09/07/16 at 09:00; Status UNV Non-Formulary Medication 1 tab DAILY PO ; Start 09/07/16 at 09:00; Status UNV Non-Formulary Medication 40 mg DAILY PO NS; Start 09/07/16 at 09:00; Status UNV Multivitamins (Theragran) 1 tab DAILY PO Last administered on 09/09/16 08:32; Start 09/07/16 at 09:00 Non-Formulary Medication 1 cap DAILY PO ; Start 09/07/16 at 09:00; Status UNV Non-Formulary Medication 1 tab DAILY PO ; Start 09/07/16 at 09:00; Status UNV Morphine Sulfate (*morphine INJ PERIprocedure ONLY) 8 mg STK-MED ONCE .ROUTE Last administered on 09/06/16 17:50; Start 09/06/16 at 17:50; Stop 09/06/16 at 17:51; Status DC Morphine Sulfate (*morphine INJ PERIprocedure ONLY) 8 mg STK-MED ONCE .ROUTE Last administered on 09/06/16 18:25; Start 09/06/16 at 18:25; Stop 09/06/16 at 18:26; Status DC Miscellaneous Information ALL NURSING DEPARTME... UNSCH PRN .XX SEE LABEL COMMENTS; Start 09/06/16 at 19:30; Stop 09/07/16 at 19:29; Status DC Miscellaneous (Pill Splitter) 1 ea UNSCH PRN OTHER SEE LABEL COMMENTS; Start at 23:00 Phenol (Chloraseptic [place]) 2 spray Q2H PRN OROPHARYNG sore throat; Start 09/07 at 09:30 Senna/Docusate Sodium (Melida-Colace) 1 tab BID PO Last administered on 08:32; Start 09/07/16 at 09:30 Morphine Sulfate (Morphine Inj) 4 mg Q2H PRN IV PUSH PAIN 7-10 Last administered on 09/08/16 16:21; Start 09/07/16 at 17:00 Magnesium Hydroxide (Milk Of Magnesia Liq) 30 ml DAILY PRN PO CONSTIPATION Last administered on 09/08/16 14:13; Start 09/08/16 at 12:30 A/P Assessment and Plan A/P - s/p lumbar laminectomy continue with pain control and rehab efforts- management per neurosurgery. History of Hypertension - Monitor trends in BP for now- Dyspepsia - Reflux vs Esophageal stricture - continue Protonix - the patient may benefit from GI follow up as an outpatient urinary retention; rivera in place- f/u with his urologist as outpatient hyponatremia; improved. constipation; laxatives as needed. DVT prophylaxis - per neurosurgery Discharge Planning dc planning per neurosurgery. Teresa Lai MD Sep 09, 2016 12:07
[2016-09-09 12:13] VITALS: BP 104/71; PULSE 95; RESP 18; TEMP 97; O2SAT 96
--- NOTE | 2016-09-09 13:28 | HHI.NSPN ---
History Chief Complaint: Incisional back pain. Interval History Mr. Murrell is a 76 year old male who underwent a L4-L5 laminectomy, interbody arthrodesis using PEEK cage and autologous bone graft, L4-L5 instrumental fixation using transpedicular screws and rods, L4-L5 posterolateral fusion using autologous bone graft and demineralized bone matrix, microsurgical dissection on 09/07/16 for lumbar spondylosis. 09/07: POD 1, doing well, report no pain if laying still, pain with movement controlled on CLINICAL QUALITY ASSURANCE SPECIALIST. c/o of mild burning when swallowing 09/08: POD 2, c/o urine retention, dribbling, history of prostate problems and f/ u Dr. Coombs outpatient. reports surgical pain improving, still requiring IV pain medications. 09/09: POD 3. Pt awake and alert. Complains of pain in right anterior thigh. Posterior left leg pain improved. Pt with low back pain. He has urinary retention and has a Hernandez in place and has a left foot drop. Pt and family are agreeable to rehab placement. Review of Systems General: Negative for: fever, chills, insomnia Respiratory: Negative for: shortness of breath, cough, sputum Cardiovascular: Negative for: chest pain Gastrointestinal: Negative for: nausea, vomitting, diarrhea, constipation Exam Results Vital Signs Date Time Temp Pulse Resp B/P Pulse Ox O2 Delivery O2 Flow Rate FiO2 09/09/16 12:13 97.0 95 18 104/71 96 09/09/16 09:21 21 09/06/16 19:00 Nasal Cannula 2 Intake and Output 09/08/16 09/08/16 09/09/16 08:00 16:00 00:00 Intake Total 240 ml Output Total 1550 ml 10 ml Balance 240 ml -1550 ml -10 ml Physical Examination Resp: CTA bilaterally Heart: NSR no murmurs Abd: Soft positive bs Skin: No cyanosis or erythema. Sitting up in chair with brace on. Muscle: Moves LEs with a left foot drop, very limited 1/5 dorsiflexion and EHL strength. Pt states chronic history of this. Neuro: Pt awake and alert. Sitting up in chair. Follows commands well. Speech clear and appropriate. Lab, Micro, Other Results Last Impressions Lumbar Spine X-Ray 09/06/16 0000 Signed Impressions: Service Date/Time: Tuesday, September 06, 2016 14:28 - CONCLUSION: Intact intermediate postsurgical changes. KLeti Andrew MD Laboratory Tests Test 09/08/16 17:04 Sodium Level 132 MEQ/L Potassium Level 4.2 MEQ/L Chloride Level 95 MEQ/L Carbon Dioxide Level 29.4 MEQ/L Anion Gap 8 MEQ/L Blood Urea Nitrogen 13 MG/DL Creatinine 0.97 MG/DL Estimat Glomerular Filtration 75 ML/MIN Rate Random Glucose 101 MG/DL Calcium Level 8.2 MG/DL 09/08/16 09/08/16 09/09/16 15:00 23:00 07:00 Output Total 1550 ml 10 ml 2230 ml Balance -1550 ml -10 ml -2230 ml Output Urine Total 1500 ml 2230 ml Drainage Total 50 ml 10 ml Bladder Scan Volume Amount 1000 ml # Voids 3 Medical Decision Making Impression and Plan A: 76 y/o M s/p L4/L5 PLIF. Left foot drop Urinary retention has Hernandez in place. P: Rehab placement continue with PT while here. Robert Alonso Sep 09, 2016 13:28
[2016-09-09] MEDS: PCA - TOTAL MG DILAUDID DELIVERED PER SHIFT SCH (14:00)
[2016-09-09 16:43] VITALS: BP 139/78; PULSE 86; RESP 18; TEMP 99.5; O2SAT 97
--- NOTE | 2016-09-11 08:46 | HHI.DS ---
Discharge Summary Admission Date Sep 06, 2016 at 09:33 Discharge Date: Sep 09, 2016 Admitting Diagnosis s/p lumbar fusion (1) Hypertension ICD Code: I10 (2) Dyspepsia ICD Code: R10.13 (3) Status post laminectomy ICD Code: Z98.89 Brief History Mr Murrell is a 76 year-old male who presented with intractable mechanical back pain and fazal evidence of lower extremity radiculopathy. He has severe spondylosis and spondylolisthesis at L4-5. He failed maximum nonsurgical management including multiple modalities of conservative treatment as well as pain management interventions by an interventional pain specialist. A surgical decompression and arthrodesis were indicated as a last resort. CBC/BMP: 09/07/16 0600 09/08/16 1704 Significant Findings Laboratory Tests Test 09/08/16 17:04 Sodium Level 132 MEQ/L (136-145) Chloride Level 95 MEQ/L (98-107) Estimat Glomerular Filtration 75 ML/MIN (>89) Rate Calcium Level 8.2 MG/DL (8.5-10.1) Hospital Course Mr. Murrell underwent a L4-L5 laminectomy, interbody arthrodesis using PEEK cage and autologous bone graft, L4-L5 instrumental fixation using transpedicular screws and rods, L4-L5 posterolateral fusion using autologous bone graft and demineralized bone matrix. Microsurgical dissection on Sep 06, 2016. His surgery went well. He developed urinary retention and rivera catheter was replaced. He was discharged to rehab. Pt Condition on Discharge: Stable Discharge Disposition: Rehab Inpatient Discharge Instructions DIET: Follow Instructions for: As Tolerated, No Restrictions ACTIVITIES You can perform: Weight Bearing As Dory Activities to Avoid: Lifting/Bending, Strenuous Activity, Bathing, Driving Follow up Referrals: Urology @ [facility] with Jeronimo Coombs MD Urine retention, rivera in place New Medications: Hydrocodone-Acetaminophen (Lortab) 10-325 Mg Tab 1 TAB PO Q8HR PRN PAIN #90 Ref 0 TAB Vandana Saavedra Sep 11, 2016 08:46
== END 2016-09-09 17:41 | DRG 460 ==
LOC: HSDI 09-06 09:33 → N05A 09-06 19:41
PROVIDERS: ADMIT Neurological Surgery; ATTEND Neurological Surgery
PROC: 01NB0ZZ Release Lumbar Nerve, Open Approach (ICD-10-PCS; 2016-09-06)
PROC: 0ST20ZZ Resection of Lumbar Vertebral Disc, Open Approach (ICD-10-PCS; 2016-09-06)
PROC: 0SG00AJ Fusion of Lumbar Vertebral Joint with Interbody Fusion Device, Posterior Approach, Anterior Column, Open Approach (ICD-10-PCS; principal; 2016-09-06 13:25)
PROC: 0T9B70Z Drainage of Bladder with Drainage Device, Via Natural or Artificial Opening (ICD-10-PCS; 2016-09-07)
DX: M51.16 Intervertebral disc disorders with radiculopathy, lumbar region (principal); E87.1 Hypo-osmolality and hyponatremia; I10 Essential (primary) hypertension; M43.16 Spondylolisthesis, lumbar region; M21.372 Foot drop, left foot; R33.8 Other retention of urine; K21.9 Gastro-esophageal reflux disease without esophagitis; H40.9 Unspecified glaucoma; E78.5 Hyperlipidemia, unspecified; N40.1 Benign prostatic hyperplasia with lower urinary tract symptoms
CPT/HCPCS: 72100; 76000; 80048; 85025; 86850; 86900; 86901; 93005; 94150; C1713; C9113; J0131; J0690; J1170; J1580; J2250; J2270; J3010; J3370; J3480; J7040; J7050; J7120; L0200; L0484